=== PATIENT | male | born 1990 | race Caucasian/White ===

== ENCOUNTER 2021-09-20 02:09 | Emergency (ER) | payer OTHER, SELFPAY ==
[2021-09-20 02:09] VITALS: BP 135/88; PULSE 82; RESP 16; TEMP 36.4; O2SAT 97; BMI 26.7
--- NOTE | 2021-09-20 03:08 | [facility].EDGENADL ---
ED Disposition Clinical Impression: Fracture of tooth, Dental caries Disposition: Home, Self-Care Condition on Discharge: Good Referrals: Provider,Referral, [Primary Care Provider] - - Critical Care Critical Care Time: No Attestation: On 09/20/21, the high probability of a clinically significant, sudden or life threatening deterioration of the following system(s) required my full and direct attention, intervention and personal management. The time I documented below is in addition to time spent performing reported procedures but includes the following listed in this critical care notation. Medical Decision Making - [place] Inquiry Pt receiving controlled substance: No Vital Signs: 09/20/21 02:09 Temperature 97.5 F L Temperature Source Oral Pulse Rate [Left] 82 Respiratory Rate 16 Blood Pressure [Right Arm] 135/88 Blood Pressure Mean [Right Arm] 103 02 Sat by Pulse Oximetry 97 Orders (Tests/Meds): ED MEDICATIONS Discontinued Medications Generic Name Dose Route Start Last Admin Trade Name Freq PRN Reason Stop Dose Admin Bupivacaine HCl/Epinephrine Bitart 5 ml 09/20/21 03:06 Bupivacaine 0.5% W/Epi 1:200,000 10ml Vial IJ 09/20/21 03:07 ONCE ONE Medical Decision Narrative: 30 yo male w/ hx of dental caries and cavities presents for tooth fracture. #18 tooth is fractured along the alize-lateral crown without visible dentin or pulp. It is nontender. There is no associated gingival or facial swelling or tenderness to suggest dental or facial abscess or infection. Patient has extensive dental caries along other teeth in mouth as well and I suspect this chronic tooth decay may be contributor to his low mechanism tooth fracture tonight. I offered patient inferior alveolar block which he is amenable to here in the ED as he states I don't have pain right now but I don't want to leave and have to come back if the pain comes back . Patient will follow up with a dentist as soon as possible - he states he has access to a dentist. I also suggested patient try to go to walk in dental clinic if possible later today if his personal dentist cannot see him. He is amenable to plan. Nerve block done in the ED. Given ED return precautions. General Adult HPI - General Chief complaint: Dental/Oral Stated complaint: Dental Pain Broken tooth lft side Time Seen by Provider: 09/20/21 03:00 Mode of Arrival: Ambulatory Source of Information: Patient Limitations: No Limitations Description of Symptoms (Recalled from ER Triage Doc. by RN): pain in the left bottom jaw radiating throught to the left side of the head. pt reports breaking a filling off while eating at 6pm tonight the pain onset was slow but is now unbarable. - History of Present Illness HPI narrative: 30 yo male w/ hx dental caries s/p multiple tooth extractions presents for evaluation of dental pain. Patient states around 6 pm earlier tonight he was eating garlic bread and felt part of his bottom left tooth break off. States he had increasing pain along that tooth occasionally radiating to the same side of his head and jaw. He took ibuprofen around 8 pm and applied orajel which did not seem to significantly help his pain and it was unbearable on the way to the ED. Patient states he has no pain now here in the ED, thinks the ibuprofen had time to work. Denies trouble breathing, swallowing, other pain. - Related Data Allergies Allergy/AdvReac Type Severity Reaction Status Date / Time Sulfa (Sulfonamide Allergy Unknown Unverified 09/04/17 15:32 Antibiotics) [SULFA (SULFONAMIDE ANTIBIOTICS)] [facility] [place] History - Hepatitis A Screen Drug use history?: No High risk sexual behaviors?: No History of sexually transmitted infection?: No Currently employed?: No Childcare worker?: No Do you have indoor plumbing?: Yes Do you have electricity?: Yes Attestation statement:: This patient has been screened for Hepatitis A risk factors. XI Rosenthal
[2021-09-20 03:53] VITALS: BP 127/83; PULSE 74; RESP 16; TEMP 36.7; O2SAT 96
== END 2021-09-20 03:53 | disposition home or self-care (01) ==
PROVIDERS: Emergency Provider Student in an Organized Health Care Education/Training Program
DX: K03.81 Cracked tooth (principal); K02.9 Dental caries, unspecified; Z88.2 Allergy status to sulfonamides
CPT/HCPCS: 64450; 99281